=== PATIENT | male | born 1995 | race Caucasian/White ===

== ENCOUNTER 2017-09-10 12:56 | Emergency (ER) | payer OTHER ==
[~2017-09-10] VITALS: Ht 175.3 cm; Wt 60.0 kg
[2017-09-10 13:00] VITALS: BP 143/87; PULSE 140; RESP 18; TEMP 97.9; O2SAT 97
[2017-09-10 13:45] VITALS: O2SAT 100
[2017-09-10 13:57] VITALS: PULSE 130; RESP 16; O2SAT 100
[2017-09-10] MEDS ORDERED: SODIUM CHLOR 0.9% 1000 ML INJ 1,000 ML IV ONE ×2 (14:00→16:00)
[2017-09-10] MEDS ORDERED: LORazepam 2 MG/ML VIAL IV PUSH ONE (14:00)
[2017-09-10] MEDS ORDERED: SODIUM CHLORIDE 0.9% FLUSH 10 ML FLUSH IVF PRN (14:00)
--- NOTE | 2017-09-10 15:31 | PD ---
HPI Chief Complaint: Medical Clearance Time Seen by Provider: 13:47 Travel History International Travel<30 days: No Contact w/Intl Traveler<30days: No Traveled to known affect area: No History of Present Illness HPI 22-year-old male arrives to the ER. The patient abuses IV heroin. Today he accidentally abused IV methamphetamines and arrived to the ER complaining of anxiety and palpitations. Onset sudden. Timing constant. Location generalized , cardiac and neuropsychiatric. PFSH Social History Alcohol Use: Yes (OCC) Tobacco Use: Yes Substance Use: Yes (METH, HEROIN ) Allergies-Medications (Allergen,Severity, Reaction): Coded Allergies: No Known Allergies (Unverified , 09/10/17) Reported Meds & Prescriptions Reported Meds & Active Scripts Active No Active Prescriptions or Reported Medications Review of Systems Except as stated in HPI: all other systems reviewed are Neg General / Constitutional: No: Fever Physical Exam Narrative GENERAL: 22-year-old male well-nourished well-developed SKIN: Focused skin assessment warm/dry. HEAD: Atraumatic. Normocephalic. EYES: Pupils equal and round. No scleral icterus. No injection or drainage. ENT: No nasal bleeding or discharge. Mucous membranes pink and moist. NECK: Trachea midline. No JVD. CARDIOVASCULAR: Tachycardia. Regular rhythm. RESPIRATORY: No accessory muscle use. Clear to auscultation. Breath sounds equal bilaterally. GASTROINTESTINAL: Abdomen soft, non-tender, nondistended. Hepatic and splenic margins not palpable. MUSCULOSKELETAL: No obvious deformities. No clubbing. No cyanosis. No edema. NEUROLOGICAL: Awake and alert. No obvious cranial nerve deficits. Motor grossly within normal limits. Normal speech. PSYCHIATRIC: Appropriate mood and affect; insight and judgment normal. Data Data Last Documented VS Vital Signs Date Time Temp Pulse Resp B/P (MAP) Pulse Ox O2 Delivery O2 Flow Rate FiO2 09/10/17 13:57 130 16 100 Room Air 09/10/17 13:00 97.9 Vital Signs Date Time Temp Pulse Resp B/P (MAP) Pulse Ox O2 Delivery O2 Flow Rate FiO2 09/10/17 13:57 130 16 100 Room Air 09/10/17 13:45 17 09/10/17 13:00 97.9 140 18 143/87 (105) 97 Orders Orders Iv Access Insert/Monitor (09/10/17 14:00) Ecg Monitoring (09/10/17 14:00) Oximetry (09/10/17 14:00) Sodium Chloride 0.9% Flush (Ns Flush) (09/10/17 14:00) Sodium Chlor 0.9% 1000 Ml Inj (Ns 1000 M (09/10/17 14:00) Lorazepam Inj (Ativan Inj) (09/10/17 14:00) MDM Medical Decision Making Medical Screen Exam Complete: Yes Emergency Medical Condition: Yes Medical Record Reviewed: Yes Differential Diagnosis Altered mental status/psychosis due to infection/environmental exposure/ metabolic abnormality, polypharmacy, alcohol abuse/intoxication, illicit or prescribed drug abuse, malingering/secondary gain, non-organic psychiatric disease Narrative Course The patient was given IV saline and Ativan. At the time of reassessment, 3:30 PM, patient states he was attempting suicide while injecting methamphetamine today. He denies similar prior event. Psych screen added. HR decreased to 100. Pt is medically clear. Diagnosis Primary Impression: IV drug abuse Additional Impression: Suicidal ideations Admitting Information Admitting Physician Requests: Observation Scripts No Active Prescriptions or Reported Meds Jan Poon MD Sep 10, 2017 15:31
[2017-09-10 18:15] VITALS: BP 138/78; PULSE 98; RESP 15; O2SAT 100
[2017-09-10 19:56] VITALS: BP 146/84; PULSE 98; RESP 16; O2SAT 100
[2017-09-10 22:34] VITALS: BP 127/63; PULSE 94; RESP 17; O2SAT 99
[2017-09-11 02:48] VITALS: BP 112/56; PULSE 75; RESP 15; O2SAT 99
[2017-09-11 06:24] VITALS: BP 109/59; PULSE 85; RESP 18
--- NOTE | 2017-09-11 09:18 | PD ---
Physical Exam Time Seen by Provider: 09:[address] Aragon has evaluated the patient and cleared the patient for discharge. Data Data Last Documented VS Vital Signs Date Time Temp Pulse Resp B/P (MAP) Pulse Ox O2 Delivery O2 Flow Rate FiO2 09/11/17 06:24 85 18 109/59 (76) 09/11/17 02:48 99 09/10/17 18:15 Room Air 09/10/17 13:00 97.9 Orders Orders Iv Access Insert/Monitor (09/10/17 14:00) Ecg Monitoring (09/10/17 14:00) Oximetry (09/10/17 14:00) Sodium Chloride 0.9% Flush (Ns Flush) (09/10/17 14:00) Sodium Chlor 0.9% 1000 Ml Inj (Ns 1000 M (09/10/17 14:00) Lorazepam Inj (Ativan Inj) (09/10/17 14:00) Sodium Chlor 0.9% 1000 Ml Inj (Ns 1000 M (09/10/17 16:00) Psych Screen (09/10/17 18:13) Drug Screen, Random Urine (09/10/17 19:32) Diet Regular Basic (09/11/17 Breakfast) Labs Laboratory Tests Test 09/10/17 19:35 Urine Opiates Screen NEG Urine Barbiturates Screen NEG Urine Amphetamines Screen NEG Urine Benzodiazepines Screen NEG Urine Cocaine Screen NEG Urine Cannabinoids Screen NEG MDM Supervised Visit with ADRI[facility]N: No Narrative Course Dr. Aragon has evaluated the patient and cleared the patient for discharge. Patient contracts safety. Denies suicidal or homicidal ideations. Patient will be provided community resource packet to [facility] for follow-up. Has friends and family for support. Patient is medically cleared for discharge. Diagnosis Primary Impression: IV drug abuse Additional Impression: Suicidal ideations Referrals: [facility] (Out patient) [facility] Primary Care Physician Psychiatrist [facility] Patient Instructions: General Instructions, Polysubstance Abuse (ED), Suicide Prevention for Adults (ED) Additional Instruction: Contract safety to your self and others Stop using drugs Follow-up with psychiatry Follow-up with primary care provider Follow-up with Neal Sheikh Return to the emergency department immediately with worsening of symptoms Med/Other Pt SpecificInfo: No Change to Meds, No Meds Exist/No RX given Scripts No Active Prescriptions or Reported Meds Disposition: 01 DISCHARGE HOME Condition: Stable Taty Farrell Sep 11, 2017 09:18
[2017-09-11 10:14] VITALS: BP 115/68
--- NOTE | 2017-09-11 15:53 | PD.PSY.CON ---
Provisional Diagnosis Admission Date [facility] I. heroine use disorder History of Present Illness Service Psychiatry Consult Requested By Reason for Consult Psych evaluation Primary Care Physician No Primary Care Physician HPI The patient is a 22-year-old [facility] man, domicile with girlfriend in [place], unemployed, without any previous psychiatric history, no previous suicidal attempts, no previous psychiatric hospitalizations, history of heroine, amphetamines, cocaine and cannabis use disorder, the medical medical history, who arrives to the ER requesting a psychiatric evaluation. On psychiatric evaluation patient is calm, cooperative, he is stays that he is looking for treatment for his heroine addiction. Patient denies depressive symptoms, he denies anxiety, he denies suicidal and homicidal ideation, he denies visual and auditory hallucinations. Review of Systems Except as stated in HPI: all other systems reviewed are Neg Past Family Social History Coded Allergies: No Known Allergies (Unverified , 09/10/17) No Active Prescriptions or Reported Meds Social History Patient was born and raised in [place], he comes from [place], has been in the [facility] for about 1 year Patient's Strengths (min. 2) Insight Physical Exam Vital Signs Vital Signs Date Time Temp Pulse Resp B/P (MAP) Pulse Ox O2 Delivery O2 Flow Rate FiO2 09/11/17 10:14 87 20 115/68 (84) 100 09/10/17 18:15 Room Air 09/10/17 13:00 97.9 Lab Results Test 09/10/17 19:35 Urine Opiates Screen NEG Urine Barbiturates Screen NEG Urine Amphetamines Screen NEG Urine Benzodiazepines Screen NEG Urine Cocaine Screen NEG Urine Cannabinoids Screen NEG Mental Status Examination Appearance: Appropriate Consciousness: Alert Orientation: x4 Motor Activity: Normal gait Speech: Unremarkable Language: Adequate Fund of Knowledge: Adequate Attention and Concentration: Adequate Memory: Unremarkable Mood: Appropriate Affect: Appropriate Thought Process & Associations: Intact Thought Content: Appropriate Hallucination Type: None Delusion Type: None Suicidal Ideation: No Suicidal Plan: No Suicidal Intention: No Homicidal Ideation: No Homicidal Plan: No Homicidal Intention: No Insight: Adequate Judgment: Adequate Assessment & Plan Problem List: (1) Heroin dependence ICD Codes: F11.20 - Opioid dependence, uncomplicated Assessment & Plan: Patient does not meet criteria for psychiatric admission at this moment. Denies suicidal and homicidal ideation, denies visual and auditory hallucinations. Will BE provided with referral package for outpatient treatment. Assessment & Plan Estimated LOS: Cristo Castano MD Sep 11, 2017 15:52
== END 2017-09-11 10:15 | disposition home or self-care (01) ==
LOC: NEPD 12:56 → NEPJ 09-11 10:15
DX: F11.20 Opioid dependence, uncomplicated (principal); R45.851 Suicidal ideations; R00.2 Palpitations; F41.9 Anxiety disorder, unspecified; F17.200 Nicotine dependence, unspecified, uncomplicated
CPT/HCPCS: 80307; 96361; 96374; 99284; J2060; J7030